=== PATIENT | male | born 1970 ===

== ENCOUNTER 2021-05-20 09:08 | Inpatient (IN) ==
[2021-05-20] MEDS ORDERED: Morphine 4 MG/ML VIAL (1 ml) IV ONE (10:39)
[2021-05-20] MEDS ORDERED: Heparin DRIP 25,000 UNITS BAG 25,000 UNITS/500 ML BAG IV SCH (10:45)
[2021-05-20] MEDS ORDERED: nitroGLYCERIN DRIP 25,000 MCG/250 ML BTL IV SCH (11:00)
[2021-05-20] MEDS ORDERED: fentaNYL 100 mcg/2 ml 50 MCG/ML VIAL ONE (11:00)
[2021-05-20] MEDS ORDERED: Heparin 5000 UNITS/ML 1 mL VIAL IV SCH (11:00)
[2021-05-20] MEDS ORDERED: Midazolam 5 mg/5 ml VIAL 1 mg/ml 5 ml VIAL (5 mg) ONE (11:00)
[2021-05-20] MEDS ORDERED: Heparin 2 UNITS/ML 1000 mls 2,000 ML IV ONE (11:00)
[2021-05-20] MEDS ORDERED: niCARdipine 0.1MG/ML IVPREMIX 20 MG/200 ML BAG IV ONE (11:01)
[2021-05-20] MEDS ORDERED: Iohexol 350 (CONTRAST) 200 ML MDV IV ONE (11:01)
[2021-05-20] MEDS ORDERED: Lidocaine 1% VIAL 10 MG/ML VIAL ONE (11:01)
[2021-05-20] MEDS ORDERED: nitroGLYCERIN DRIP 25,000 MCG/250 ML BTL ONE (11:01)
[2021-05-20] MEDS ORDERED: Heparin 1,000 UNIT/ML 10 ml (10,000 UNITS) CATHLAB/DIALYSIS ONE (11:06)
[2021-05-20 11:27] VITALS: BP 148/104
[2021-05-20] MEDS ORDERED: Rocuronium 50 mg VIAL 10 mg/ml 5 ml VIAL (50 mg) ONE (11:57)
== END 2021-05-23 13:45 | disposition home or self-care (01) | DRG 174 ==
LOC: ED 09:08 → CHICATH 11:28 → ICU 14:29 → ED 15:04
PROVIDERS: ADMIT Internal Medicine; ATTEND Internal Medicine

== ENCOUNTER 2021-05-20 11:28 | Inpatient (IN) ==
[2021-05-20 09:51] LABS: ABS Monocytes 0.4 10^3/ul (0-0.8); ABS Neutrophils 5.3 10^3/ul (1.5-7.7); Eosinophil % 0.1 %; Hematocrit 41 % (42-52); Hemoglobin 14.5 g/dL (14.0-18.0); Mean Corpuscular HGB Conc 35 g/dL (31-36); Mean Corpuscular Hemoglobin 31 pg (27-31); Mean Corpuscular Volume 90 fL (80-94); Mean Platelet Volume 9.8 fL (7.4-10.4); Platelet Count 180 10^3/uL (150-450); Red Blood Count 4.61 10^6 /uL (4.18-5.48); Red Cell Distribution Width 13 % (10-15); White Blood Count 6.7 10^3/uL (3.5-10.8)
[2021-05-20 10:07] LABS: ALT 27 U/L (7-52); AST 50 U/L (13-39); Albumin 4.6 g/dL (3.2-5.2); Albumin/Globulin Ratio 1.4 (1-3); Alkaline Phosphatase 105 U/L (35-149); Anion Gap 8 mmol/L (2-11); Blood Urea Nitrogen 11 mg/dL (6-24); CO2 Carbon Dioxide 27 mmol/L (22-32); Calcium 9.4 mg/dL (8.6-10.3); Chloride 98 mmol/L (101-111); EGFR Non-African American 147.1 (>60); Globulin 3.4 g/dL (2-4); Glucose 111 mg/dL (70-100); Potassium 3.6 mmol/L (3.5-5.0); Sodium 133 mmol/L (135-145)
[2021-05-20 10:31] LABS: Troponin I 2.68 ng/mL (<0.03)
[2021-05-20 11:32] LABS: Activated Partial Thrombo Time 37.2 seconds (26.0-38.0)
[2021-05-20] MEDS ORDERED: Midazolam 5 mg/5 ml VIAL 1 mg/ml 5 ml VIAL (5 mg) ONE (12:04)
[2021-05-20] MEDS ORDERED: Succinylcholine 200 mg VIAL 20 mg/ml 10 ml VIAL (200 mg) ONE (12:04)
[2021-05-20] MEDS ORDERED: fentaNYL 250 mcg/5 ml 50 MCG/ML 5 ml VIAL (250 MCG) ONE (12:04)
[2021-05-20] MEDS ORDERED: Propofol 10 MG/ML 20 ML BTL ONE (12:04)
[2021-05-20] MEDS ORDERED: Phenylephrine 40 mcg/mL 10mL (400mcg) SYRINGE ONE (12:05)
[2021-05-20] MEDS ORDERED: Iohexol 350 (CONTRAST) 200 ML MDV IV ONE (12:28)
[2021-05-20] MEDS ORDERED: Eptifibatide IV (Load dose) 2 MG/ML 10 ml VIAL ONE ×2 (12:36→12:44)
[2021-05-20] MEDS ORDERED: Norepinephrine 16MCG/ML IVPRE 4,000 MCG/250 ML BAG IV ONE (12:44)
[2021-05-20] MEDS ORDERED: Norepinephrine IV 1 MG/ML 4 ML VIAL ONE (12:45)
[2021-05-20] MEDS ORDERED: Ondansetron 4 mg VIAL 2 MG/ML 2 ml VIAL IV PRN (13:37)
[2021-05-20] MEDS ORDERED: Prasugrel 10 mg TAB (NF) PO ONE (13:47)
[2021-05-20 15:05] LABS: Rapid COVID-19 Molecular Undetected (Undetected)
[2021-05-20] MEDS: Morphine 2 MG/ML SYRINGE IV PRN (18:17)
[2021-05-20] MEDS ORDERED: Metoprolol Tartrate 5 mg VIAL 5 ml VIAL (1 mg/ml) IV ONE (22:06)
[2021-05-20] MEDS ORDERED: Nitro 2% OINT (Nitroglycerin) 1 INCH/PAK TOPICAL ONE (22:10)
[2021-05-21] MEDS: Nitro Patch/OINT Remove PATCH TOPICAL ONE ×2 (01:05→03:56)
[2021-05-21] MEDS ORDERED: NS 0.9% 250 ml 250 ML IV ONE (03:34)
[2021-05-21 04:43] LABS: ABS Monocytes 0.4 10^3/ul (0-0.8); ABS Neutrophils 4.7 10^3/ul (1.5-7.7); Eosinophil % 0.7 %; Hematocrit 38 % (42-52); Hemoglobin 13.4 g/dL (14.0-18.0); Lymphocyte % 16.2 %; Mean Corpuscular HGB Conc 35 g/dL (31-36); Mean Corpuscular Hemoglobin 32 pg (27-31); Mean Corpuscular Volume 90 fL (80-94); Mean Platelet Volume 9.7 fL (7.4-10.4); Platelet Count 173 10^3/uL (150-450); Red Blood Count 4.25 10^6 /uL (4.18-5.48); Red Cell Distribution Width 13 % (10-15); White Blood Count 6.2 10^3/uL (3.5-10.8)
[2021-05-21 05:04] LABS: Albumin 3.8 g/dL (3.2-5.2); Albumin/Globulin Ratio 1.3 (1-3); Calcium 8.5 mg/dL (8.6-10.3); EGFR African American 104.5 (>60); EGFR Non-African American 86.4 (>60); HDL Cholesterol 36.1 mg/dL; Potassium 3.5 mmol/L (3.5-5.0); Total Bilirubin 0.5 mg/dL (0.2-1.0); Total Protein 6.8 g/dL (6.4-8.9)
[2021-05-21] MEDS ORDERED: Potassium Chlor 20 meq TAB.ER PO ONE (07:00)
[2021-05-21] MEDS: CMCS: Prasugrel 10 mg TAB (NF) PO SCH (08:59)
[2021-05-21] MEDS: Morphine 2 MG/ML SYRINGE IV PRN ×2 (16:34→20:50)
[2021-05-21] MEDS: Triamcinolone 0.5% OINT 1 TUBE TOPICAL SCH (19:51)
[2021-05-22 05:31] LABS: ALT 53 U/L (7-52); AST 128 U/L (13-39); Albumin 3.8 g/dL (3.2-5.2); Albumin/Globulin Ratio 1.3 (1-3); Alkaline Phosphatase 86 U/L (35-149); Anion Gap 6 mmol/L (2-11); Blood Urea Nitrogen 13 mg/dL (6-24); CO2 Carbon Dioxide 26 mmol/L (22-32); Calcium 8.4 mg/dL (8.6-10.3); Chloride 103 mmol/L (101-111); EGFR African American 136.5 (>60); EGFR Non-African American 112.8 (>60); Globulin 2.9 g/dL (2-4); Glucose 113 mg/dL (70-100); Potassium 3.7 mmol/L (3.5-5.0); Sodium 135 mmol/L (135-145); Total Protein 6.7 g/dL (6.4-8.9)
[2021-05-22] MEDS ORDERED: NS 0.9% 250 ML BAG IV ONE (06:00)
[2021-05-22 06:53] LABS: Troponin I 40.16 ng/mL (<0.03)
[2021-05-22] MEDS ORDERED: Perflutren Lipid Microsphere 3 ML VIAL ONE (07:46)
[2021-05-22] MEDS: Triamcinolone 0.5% OINT 1 TUBE TOPICAL SCH ×2 (09:46→20:59)
[2021-05-22] MEDS: CMCS: Prasugrel 10 mg TAB (NF) PO SCH (09:46)
[2021-05-22] MEDS ORDERED: Heparin DRIP 25,000 UNITS BAG 25,000 UNITS/500 ML BAG IV SCH (10:45)
[2021-05-22] MEDS ORDERED: Heparin 5000 UNITS/ML 1 mL VIAL IV SCH (11:00)
[2021-05-22 11:38] LABS: EGFR African American 145.7 (>60); EGFR Non-African American 120.4 (>60)
[2021-05-22] MEDS ORDERED: Heparin 1,000 UNIT/ML 10 ml (10,000 UNITS) CATHLAB/DIALYSIS ONE (12:37)
[2021-05-22] MEDS ORDERED: nitroGLYCERIN DRIP 25,000 MCG/250 ML BTL ONE (12:38)
[2021-05-22] MEDS ORDERED: Heparin 2 UNITS/ML 1000 mls 2,000 ML IV ONE (12:38)
[2021-05-22] MEDS ORDERED: Iohexol 350 (CONTRAST) 200 ML MDV IV ONE (12:38)
[2021-05-22] MEDS ORDERED: Lidocaine 1% VIAL 10 MG/ML VIAL ONE (12:38)
[2021-05-22] MEDS ORDERED: niCARdipine 0.1MG/ML IVPREMIX 20 MG/200 ML BAG IV ONE (12:38)
[2021-05-22] MEDS ORDERED: Propofol 10 MG/ML 20 ML BTL ONE (12:57)
[2021-05-22] MEDS ORDERED: fentaNYL 100 mcg/2 ml 50 MCG/ML VIAL ONE (12:57)
[2021-05-22] MEDS ORDERED: Midazolam 5 mg/5 ml VIAL 1 mg/ml 5 ml VIAL (5 mg) ONE (12:57)
[2021-05-22] MEDS ORDERED: Nitro 2% OINT (Nitroglycerin) 1 INCH/PAK TOPICAL ONE (23:28)
[2021-05-23] MEDS: Nitro Patch/OINT Remove PATCH TOPICAL ONE ×2 (01:45→03:56)
[2021-05-23 05:17] LABS: ABS Eosinophils 0.1 10^3/ul (0-0.6); ABS Lymphocytes 1.3 10^3/ul (1.0-4.8); ABS Monocytes 0.8 10^3/ul (0-0.8); ABS Neutrophils 3.9 10^3/ul (1.5-7.7); Eosinophil % 1.8 %; Hematocrit 36 % (42-52); Hemoglobin 12.4 g/dL (14.0-18.0); Mean Corpuscular HGB Conc 34 g/dL (31-36); Mean Corpuscular Hemoglobin 31 pg (27-31); Mean Corpuscular Volume 91 fL (80-94); Mean Platelet Volume 9.9 fL (7.4-10.4); Nucleated Red Blood Cells % 0.1; Platelet Count 155 10^3/uL (150-450); Red Cell Distribution Width 14 % (10-15)
[2021-05-23 05:37] LABS: ALT 43 U/L (7-52); AST 64 U/L (13-39); Albumin 3.5 g/dL (3.2-5.2); Albumin/Globulin Ratio 1.2 (1-3); Alkaline Phosphatase 88 U/L (35-149); Anion Gap 6 mmol/L (2-11); Blood Urea Nitrogen 17 mg/dL (6-24); CO2 Carbon Dioxide 26 mmol/L (22-32); Calcium 8.5 mg/dL (8.6-10.3); Chloride 103 mmol/L (101-111); EGFR African American 103.2 (>60); EGFR Non-African American 85.3 (>60); Globulin 2.9 g/dL (2-4); Glucose 136 mg/dL (70-100); Potassium 3.9 mmol/L (3.5-5.0); Sodium 135 mmol/L (135-145); Total Protein 6.4 g/dL (6.4-8.9)
[2021-05-23 05:54] LABS: Troponin I 22.54 ng/mL (<0.03)
[2021-05-23] MEDS: CMCS: Prasugrel 10 mg TAB (NF) PO SCH (08:08)
[2021-05-23] MEDS: Triamcinolone 0.5% OINT 1 TUBE TOPICAL SCH (08:09)
[2021-05-23 09:19] LABS: Phosphorus 3.9 mg/dL (2.5-5.0)
[2021-05-23 13:09] VITALS: BP 112/70
== END 2021-05-23 13:45 | disposition home or self-care (01) | DRG 174 ==
LOC: CHICATH 11:28 → ICU 14:29
PROVIDERS: ADMIT Internal Medicine Critical Care Medicine; ATTEND Internal Medicine